=== PATIENT | female | born 1970 | race Caucasian/White ===

== ENCOUNTER 2023-01-31 06:02 | Day surgery (SDC) | payer OTHER ==
[2023-01-31] MEDS ORDERED: LIDOCAINE 2% MPF 5 ML VIAL ONE (06:28)
[2023-01-31] MEDS ORDERED: EPINEPHRINE/PF 1 MG/ML AMP ONE (06:29)
[2023-01-31] MEDS ORDERED: MIDAZOLAM HCL 2 MG/2 ML INJ ONE (06:29)
[2023-01-31] MEDS ORDERED: dexAMETHasone 4 MG/ML VIAL ONE (06:30)
[2023-01-31] MEDS ORDERED: Ringers Lactate 1,000 ML IV ONE (06:33)
[2023-01-31] MEDS ORDERED: propofoL 200 MG/20 ML VIAL IV ONE (06:44)
[2023-01-31] MEDS ORDERED: LIDOCAINE 1% MPF 30 ML VIAL ONE (06:44)
[2023-01-31] MEDS ORDERED: ONDANSETRON 4 MG/2 ML VIAL ONE (08:30)
--- NOTE | 2023-01-31 09:17 | RAD REPORT ---
EXAM DESCRIPTION: RAD - Foot Right 2 View - 01/31/2023 8:58 am CLINICAL HISTORY: RT FIFTH TOE DEROTATIONAL AND BUNIONECTOMY COMPARISON: None available. FINDINGS: Twelve Images were sent to PACS, documenting hardware positions during fifth toe osteotomy and bunionectomy. No radiologist was available for the procedure, nor will any image interpretation he provided. Please refer to the procedural report for additional details. Fluoroscopy time: 0.4 Minutes. IMPRESSION: Documentation of fluoroscopy utilization as above.
[2023-01-31 09:55] VITALS: TEMP 97; O2SAT 100
[2023-01-31 11:18] VITALS: BP 120/80
== END 2023-01-31 11:15 | disposition home or self-care (01) ==
LOC: OR 06:02
PROVIDERS: ATTEND Podiatrist Foot & Ankle Surgery
PROC: 0SRP0JZ Replacement of Right Toe Phalangeal Joint with Synthetic Substitute, Open Approach (ICD-10-PCS; 2023-01-31)
PROC: 0QSN04Z Reposition Right Metatarsal with Internal Fixation Device, Open Approach (ICD-10-PCS; principal; 2023-01-31 07:15)
DX: M21.621 Bunionette of right foot (principal); M20.41 Other hammer toe(s) (acquired), right foot; G47.33 Obstructive sleep apnea (adult) (pediatric); K21.9 Gastro-esophageal reflux disease without esophagitis
CPT/HCPCS: 88300; 73620; 28296; 28285; J2704; J1100; J0171; J2001; J2405; J7120; J2250

== ENCOUNTER 2024-05-14 20:09 | Emergency (ER) | payer OTHER ==
--- NOTE | 2024-05-14 21:24 | RAD REPORT ---
EXAMINATION: XR LEFT WRIST CLINICAL INDICATION: PAIN TECHNIQUE: Multiple projections of the left wrist were obtained. COMPARISON: No prior exam. FINDINGS: No fracture or dislocation seen.
--- NOTE | 2024-05-14 21:57 | RAD REPORT ---
EXAM: CT brain without contrast HISTORY: TRAUMA COMPARISON: None TECHNIQUE: Multiple contiguous axial images were obtained and a CT of the brain without contrast. Sag ittal and coronal reformats were performed. One or more of the following dose reduction techniques were used: Automated exposure control, adjust ment of the mA and/or kV according to patient size, and/or iterative reconstruction. FINDINGS: No evidence of hydrocephalus, intracranial hemorrhage, or extra-axial fluid collection. The brain is normal in morphology. No evidence of midline shift or areas of brain edema. The calvarium is intact. The visualized paranasal sinuses and mastoid air cells are essentially clear . IMPRESSION: No evidence of acute intracranial abnormality. EXAM: CT of the cervical spine without contrast HISTORY: Neck pain, injury TRAUMA TECHNIQUE: Multiple contiguous axial images were obtained in a CT of the cervical spine without contr ast. Sagittal and coronal reformats were performed. FINDINGS: The vertebral bodies demonstrate normal height and alignment. No evidence of acute fracture or subluxation.. Mild lower cervical spondylosis. No prevertebral soft tissue swelling is seen. The posterior facets are well aligned. Normal alignment of the skull base with the cervical spine is seen. The lung apices are unremarkable. IMPRESSION: No evidence of acute osseous abnormality of the cervical spine.
--- NOTE | 2024-05-14 21:59 | RAD REPORT ---
EXAMINATION: CT MAXILLOFACIAL WITHOUT CONTRAST CLINICAL INDICATION: FACIAL PAIN TECHNIQUE: Axial images were obtained through the facial bones and orbits without intravenous contras t. Sagittal and coronal reconstructions were created from the data. One or more of the following dose reduction techniques were used: Automated exposure control, adjustment of the mA and/or kV accor ding to patient size, and/or iterative reconstruction. Unless otherwise specified, incidental findings do not require dedicated imaging follow-up. COMPARISON: No prior exam. FINDINGS: SOFT TISSUE: No significant abnormalities. BONES: Minimal deformity of the nasal bones with slight soft tissue thickening. This could represent a minimal nasal bone fracture if the patient is tender in this region. Elsewhere no evidence of facial bone fracture. ORBITS: The globes are intact. No intraorbital hemorrhage or mass. SINUSES: The visualized paranasal sinuses and mastoid air cells are essentially clear. IMPRESSION: Minimal nasal bone irregularity anteriorly could be minimal fracture. Correlation with tami vaca ss is advised. Otherwise, negative study.
--- NOTE | 2024-05-14 22:05 | EDPHYS ---
Physician Documentation [facility] Name: Laura Smith Age: 54 yrs Sex: Female : 1970 Arrival Date: 05/14/2024 Time: 20:09 Bed IW1 Private MD: ED Physician Scooter Ho HPI: 05/14 22:03 This 54 yrs old Female presents to ER via Ambulatory with complaints of Facial Injury. kb 22:03 Pt is a 54 year old female who presents for pain to face, neck and left wrist after kb tripping and falling on porch around 1600 today. Denies loc. Reports pain to neck is worse when looking down. Denies n/v.. Historical: - Allergies: 21:04 Keflex; dd2 21:04 Valium; dd2 - PMHx: 21:04 FIBROSIS; dd2 - PSHx: 21:04 HYSTERECTOMY; Tonsillectomy; dd2 - Immunization history:: Adult Immunizations up to date. - Infectious Disease History:: Denies. - Social history:: Smoking status: Patient denies any tobacco usage or history of. ROS: 22:02 Constitutional: As per HPI kb Exam: 22:02 Constitutional: This is a well developed, well nourished patient who is awake, alert, kb and in no acute distress. ENT: Moist Mucous membranes Cardiovascular: Regular rate Respiratory: Respirations even and unlabored. No increased work of breathing. Talking in full sentences Skin: Warm, dry with normal turgor. Normal color. Neuro: Awake and alert, GCS 15, oriented to person, place, time, and situation. 22:02 Head/face: Noted is no obvious of injury or deformity except erythema, that is mild, of the nose and left cheek, swelling, that is mild, of the nose and left cheek, 22:02 Musculoskeletal/extremity: Extremities: grossly normal except: noted in the left wrist: pain, tenderness, ROM: intact in all extremities, limited active range of motion due to pain, Circulation is intact in all extremities. Sensation intact. Weight bearing: able to fully bear weight, Vital Signs: 20:56 BP 120 / 88; Pulse 83; Resp 17; Temp 97.9; Pulse Ox 100% on R/A; Weight 99.79 kg; dd2 Height 5 ft. 6 in. ; Pain 3/10; 20:56 Body Mass Index 35.51 (99.79 kg, 167.64 cm) dd2 20:56 Pain Scale: Adult dd2 [place] Coma Score: 22:03 Eye Response: spontaneous(4). Motor Response: obeys commands(6). Verbal Response: kb oriented(5). Total: 15. MDM: 20:27 Medical Screening Exam initiated kb 22:03 Differential diagnosis: Contusion of Hematoma on Intracranial bleed- fracture. Data kb reviewed: vital signs, nurses notes. Counseling: I had a detailed discussion with the patient and/or guardian regarding the historical points, exam findings, and any diagnostic results supporting the discharge/admit diagnosis, radiology results, the need for outpatient follow up, a family practitioner, to return to the emergency department if symptoms worsen or persist or if there are any questions or concerns that arise at home. 05/14 20:58 Order name: CT Head C Spine; Complete Time: 21:58 kb 05/14 20:58 Order name: CT Facial Bones W/O Con; Complete Time: 22:01 kb 05/14 20:58 Order name: Wrist Left (3 View) XRAY; Complete Time: 21:32 kb Administered Medications: No medications were administered Disposition: 05/15 21:03 Co-signature as Attending Physician, Scooter Ho MD I agree with the assessment sp4 and plan of care. I reviewed the patient's care provided by the Advanced Practice Provider and agree with the diagnosis and treatment plan. Disposition Summary: 05/14/24 22:04 Discharge Ordered Notes: Location: Home kb Condition: Stable kb Diagnosis - Fracture of nasal bones kb - Unspecified injury of head, initial encounter kb - Other specified sprain of left wrist kb Followup: kb - With: Emergency Department - When: As needed - Reason: Worsening of condition Followup: kb - With: Private Physician - When: 2 - 3 days - Reason: Recheck today's complaints, Continuance of care, Re-evaluation by your physician Discharge Instructions: - Discharge Summary Sheet kb - Nasal Fracture, [id number] kb - Head Injury, Adult, [id number] kb Forms: - Medication Reconciliation Form kb - Antibiotic Education kb - Prescription Opioid Use kb - Patient Portal Instructions kb - Leadership Thank You Letter kb Prescriptions: - Augmentin 875-125 mg Oral Tablet - take 1 tablet ORAL route every 12 hours for 10 days; 20 tablet; Refills: 0, kb Product Selection Permitted - Diclofenac Sodium 75 mg Oral tablet, delayed release (enteric coated) - take 1 tablet ORAL route 2 times per day As needed; 30 tablet; Refills: 0, kb Product Selection Permitted - orphenadrine citrate 100 mg Oral Tablet Sustained Release - take 1 tablet ORAL route 2 times per day As needed; 20 tablet; Refills: 0, kb Product Selection Permitted Signatures: Dispatcher [employer] EDMS Kerry Morse, [employer] TE[employer]STER-Scooter Melendez MD MD sp4 MARCIO TABARES RN RN dd2 Corrections: (The following items were deleted from the chart) 05/14 20:59 20:59 Facial Bones W/ MPR+CT.RAD.BRZ ordered. EDMS EDMS 20:59 20:59 Wrist Left 3 View+RAD.RAD.BRZ ordered. EDMS EDMS 21:07 21:04 Allergies: No Known Allergies; dd2 dd2
--- NOTE | 2024-05-14 22:05 | ER ---
Nurse's Notes [facility] Name: Laura Smith Age: 54 yrs Sex: Female : 1970 Arrival Date: 05/14/2024 Time: 20:09 Bed IW1 Private MD: Diagnosis: Fracture of nasal bones;Unspecified injury of head, initial encounter;Other specified sprain of left wrist Presentation: 05/14 20:56 Chief complaint: Patient states: WALKING ON WOODEN PORCH, SLIPPED AND FELL FACE DOWN dd2 HITTING HER LEFT CHEEK, NOSE, LIP AND LEFT WRIST. PT STATES HAD BLEEDING FROM HER NOSE AND LIP. Coronavirus screen: At this time, the client does not indicate any symptoms associated with coronavirus-19. Ebola Screen: No symptoms or risks identified at this time. Initial Sepsis Screen: Does the patient meet any 2 criteria? No. Patient's initial sepsis screen is negative. Does the patient have a suspected source of infection? No. Patient's initial sepsis screen is negative. Risk Assessment: Do you want to hurt yourself or someone else? Patient reports no desire to harm self or others. Onset of symptoms was May 14, 2024. 20:56 Method Of Arrival: Ambulatory dd2 20:56 Acuity: MARIE 3 dd2 Triage Assessment: 21:04 General: Appears in no apparent distress. uncomfortable, Behavior is calm, cooperative, dd2 appropriate for age. Pain: Complains of pain in LIP, NOSE, LEFT WRIST Pain does not radiate. Pain currently is 0 out of 10 on a pain scale. EENT:. EENT: Nares are clear REDNESS TO NASAL BRIDGE. Derm: Wound noted lower lip Wound is SWOLLEN, DRIED BLOOD. Historical: - Allergies: 21:04 Keflex; dd2 21:04 Valium; dd2 - PMHx: 21:04 FIBROSIS; dd2 - PSHx: 21:04 HYSTERECTOMY; Tonsillectomy; dd2 - Immunization history:: Adult Immunizations up to date. - Infectious Disease History:: Denies. - Social history:: Smoking status: Patient denies any tobacco usage or history of. Screenin:14 [facility] ED Fall Risk Assessment (Adult) History of falling in the last 3 months, vc1 including since admission Yes- single mechanical fall (1 pt) Confusion or Disorientation No (0 pts) Intoxicated or Sedated No (0 pts) Impaired Gait No (0 pts) Mobility Assist Device Used No (0 pt) Altered Elimination No (0 pt) Score/Fall Risk Level 0 - 2 = Low Risk Oriented to surroundings, Maintained a safe environment, Educated pt \T\ family on fall prevention, incl call for assistance when getting out of bed. Abuse screen: Denies threats or abuse. Nutritional screening: No deficits noted. Tuberculosis screening: No symptoms or risk factors identified. Vital Signs: 20:56 BP 120 / 88; Pulse 83; Resp 17; Temp 97.9; Pulse Ox 100% on R/A; Weight 99.79 kg; dd2 Height 5 ft. 6 in. ; Pain 3/10; 20:56 Body Mass Index 35.51 (99.79 kg, 167.64 cm) dd2 20:56 Pain Scale: Adult dd2 [place] Coma Score: 22:03 Eye Response: spontaneous(4). Motor Response: obeys commands(6). Verbal Response: kb oriented(5). Total: 15. ED Course: 20:12 Patient arrived in ED. [email or web address] 20:27 Kerry Morse FNP-C [facility] kb 20:27 Scooter Ho MD is Attending Physician. kb 21:04 Triage completed. dd2 21:04 Arm band placed on right wrist. dd2 21:18 Wrist Left (3 View) XRAY In Process Unspecified. EDMS 21:48 CT Head C Spine In Process Unspecified. EDMS 21:48 CT Facial Bones W/O Con In Process Unspecified. EDMS 22:14 No provider procedures requiring assistance completed. Patient did not have IV access vc1 during this emergency room visit. 22:15 Provided Education on: complete abx, do not take additional NSAIDs with medication. vc1 22:15 dc'd from triage. vc1 Administered Medications: No medications were administered Medication: 22:15 VIS not applicable for this client. vc1 Outcome: 22:04 Discharge ordered by . kb 22:15 Discharged to home ambulatory, vc1 22:15 Condition: stable 22:15 Discharge instructions given to patient, Instructed on discharge instructions, follow up and referral plans. medication usage, Demonstrated understanding of instructions, follow-up care, medications, Prescriptions given X 3, 22:15 Patient left the ED. vc1 Signatures: Dispatcher [employer] Kerry Salas, [employer] REG[employer]ED PHLEBOT[employer]IST [employer] TIME-Rain [place] [email or web address] Francisca Dhaliwal RN RN vc1 MARCIO TABARES RN RN dd2 Corrections: (The following items were deleted from the chart) 21:07 21:04 Allergies: No Known Allergies; dd2 dd2
[2024-05-14 22:19] VITALS: BP 120/88; TEMP 97.9; O2SAT 100
== END 2024-05-14 22:15 | disposition home or self-care (01) ==
LOC: ER 20:09
DX: S02.2XXA Fracture of nasal bones, initial encounter for closed fracture (principal); S63.592A Other specified sprain of left wrist, initial encounter; W01.0XXA Fall on same level from slipping, tripping and stumbling without subsequent striking against object, initial encounter
CPT/HCPCS: 70450; 70486; 72125; 76377; 99283